=== PATIENT | female | born 1975 | race Caucasian/White ===

== ENCOUNTER 2019-06-02 22:46 | Emergency (ER) | payer SELFPAY ==
[~2019-06-02] VITALS: Ht 165.1 cm; Wt 70.2 kg
--- NOTE | 2019-06-02 23:00 | NUR ---
PT AMBULATES FROM LOBBY TO ROOM WITH STEADY GAIT.
[2019-06-02 23:39] LABS: BASOPHILS # (AUTO) 0.05 x10^3/uL (0-0.1); BASOPHILS % (AUTO) 1 % (0-1); EOSINOPHILS # (AUTO) 0.07 x10^3/uL (0-0.4); EOSINOPHILS % (AUTO) 1 % (1-7); LYMPHOCYTES # (AUTO) 2.81 x10^3/uL (1-3.4); LYMPHOCYTES % (AUTO) 27 % (22-44); MD NO; MEAN CORPUSCULAR HEMOGLOBIN 29.5 pg (27.0-34.8); MEAN CORPUSCULAR VOLUME 86.7 fL (80-100); MEAN PLATELET VOLUME 8.3 fL (7.4-10.4); MONOCYTES # (AUTO) 0.54 x10^3/uL (0.2-0.8); MONOCYTES % (AUTO) 5 % (2-9); NEUTROPHILS % (AUTO) 67 % (42-75); PLATELET COUNT 371 x10^3/uL (130-400); RED BLOOD COUNT 5.35 x10^6/uL (3.82-5.3); RED CELL DISTRIBUTION WIDTH 13.3 % (9.6-15.2)
[2019-06-02 23:50] LABS: ALBUMIN 3.9 g/dL (3.4-5.0); ANION GAP 10 mmol/L (5-15); CALCIUM 8.8 mg/dL (8.5-10.1); CHLORIDE 110 mmol/L (98-107); CREATININE 0.67 mg/dL (0.55-1.02)
[2019-06-02 23:53] LABS: TROPONIN I < 0.015 ng/mL (0.000-0.045)
--- NOTE | 2019-06-03 01:00 | NUR ---
PT RESTING IN [facility] AT THIS TIME; DELILAHN. CALL LIGHT IS WITHIN REACH.
[2019-06-03 01:12] VITALS: BP 134/88
--- NOTE | 2019-06-03 01:41 | NUR ---
PT BECAME AGITATED WITH STAFF, AND STARTED SPEAKING INCOHERENT SENTENCES. DR ROJAS NOTIFIED OF PT BEHAVIOR. PT GETTING DRESSED AT THIS TIME. PT PROVIDED WITH D/C PAPERWORK. PT RIPPED OF VS MACHINES AND UNABLE TO REPEAT VITALS AT THIS TIME, PT IS REFUSING. PROFESSOR OF BIBLICAL STUDIES JIMMY NOTIFIED OF PT AGGRESSIVE BEHAVIOR.
== END 2019-06-03 01:53 | disposition home or self-care (01) ==
LOC: ED 06-03
DX: R20.2 Paresthesia of skin (principal)
CPT/HCPCS: 36415; 71045; 80048; 82040; 84484; 85025; 93005; 99285

== ENCOUNTER 2020-12-16 15:31 | Emergency (ER) | payer MEDICAID ==
[~2020-12-16] VITALS: Ht 165.1 cm; Wt 80.0 kg
[2020-12-16 15:43] VITALS: BP 146/78
== END 2020-12-16 16:26 | disposition home or self-care (01) ==
LOC: ED 16:00
DX: R09.81 Nasal congestion (principal); Z20.822 Contact with and (suspected) exposure to COVID-19; R05 Cough; M79.10 Myalgia, unspecified site; F17.200 Nicotine dependence, unspecified, uncomplicated
CPT/HCPCS: 99283; U0003; U0005